=== PATIENT | male | born 1965 | race Caucasian/White ===

== ENCOUNTER 2020-01-16 18:19 | Inpatient (IN) | payer BC, OTHER ==
[~2020-01-16] VITALS: Ht 177.8 cm; Wt 110.0 kg
[2020-01-16] MEDS ORDERED: diltiazem-D5W 125mg/125ml 125 ML IV PRN (19:10)
[2020-01-16] MEDS ORDERED: diltiazem-NS 100mg/100ml 100 ML IV PRN (19:12)
[2020-01-16] MEDS ORDERED: NO HOME MEDS (19:49)
[2020-01-16] MEDS ORDERED: iohexol 350MG/ML 100ml bottle IV ONE (19:49)
[2020-01-16] MEDS ORDERED: heparin 10,000 units/1 ML INJ IV ONE (20:50)
[2020-01-16] MEDS ORDERED: ipratropium/albuterol 3ml nebule NEB PRN (20:50)
[2020-01-16] MEDS ORDERED: magnesium hydroxide 30ml (MOM) UD suspension PO PRN (20:50)
[2020-01-16] MEDS ORDERED: ondansetron/PF 4mg/2ml inj IV PRN (20:50)
[2020-01-16] MEDS ORDERED: mag hydrox/Alum hydrox/simeth 30ml oral suspension PO PRN (20:50)
[2020-01-16] MEDS ORDERED: magnesium 4gm in 100ml NS 100 ML IV PRN (20:50)
[2020-01-16] MEDS ORDERED: diltiazem-NS 100mg/100ml 100 ML IV SCH (20:50)
[2020-01-16] MEDS ORDERED: acetaminophen 325mg tablet PO PRN (20:50)
[2020-01-16] MEDS ORDERED: potassium CL 10mEq/100ml bag 100 ML IV PRN ×2 (20:50)
[2020-01-16] MEDS ORDERED: potassium Cl 20 mEq SR tablet PO PRN ×2 (20:50)
[2020-01-16] MEDS ORDERED: magnesium 2GM in 50ml NS 50 ML IV PRN (20:50)
[2020-01-16] MEDS ORDERED: temazepam 15mg capsule PO PRN (21:00)
[2020-01-16 21:11] LABS: PARTIAL THROMBOPLASTIN TIME 28 SECONDS (22-32)
[2020-01-16] MEDS: normal saline 1000ml 1,000 ML IV SCH (21:36)
[2020-01-16] MEDS: heparin 25,000 UNIT/250ml bag 250 ML IV SCH (21:49)
[2020-01-16 22:15] VITALS: BP 119/75
[2020-01-16 22:30] VITALS: BP 144/108
[2020-01-16 22:45] VITALS: BP 140/88
[2020-01-16 23:00] VITALS: BP 119/75
[2020-01-16 23:15] VITALS: BP 97/53
[2020-01-17] VITALS (13 sets, daily range): BP systolic 90–132; BP diastolic 63–99
[2020-01-17 01:26] LABS: ALANINE AMINOTRANSFERASE 36 U/L (12-78); ALBUMIN 3.2 G/DL (3.4-5.0); ALBUMIN/GLOBULIN RATIO 0.9 (1.1-1.5); ALKALINE PHOSPHATASE 96 IU/L (46-116); ANION GAP 6 (8-16); ASPARTATE AMINO TRANSFERASE 21 U/L (10-37); BILIRUBIN,TOTAL 0.6 MG/DL (0.1-1.0); BLOOD UREA NITROGEN 23 MG/DL (7-18); BUN/CREATININE RATIO 20.2 (5.4-32.0); CALCIUM 8.9 MG/DL (8.5-10.1); CHLORIDE 106 MMOL/L (99-107); CREATININE 1.14 MG/DL (0.60-1.10); GLUCOSE 125 MG/DL (70-104); POTASSIUM 3.8 MMOL/L (3.5-5.1); SODIUM 140 MMOL/L (135-145); TOTAL CARBON DIOXIDE 27.8 MMOL/L (24-32); TOTAL PROTEIN 6.6 G/DL (6.4-8.2); eGFR 67 ML/MIN
[2020-01-17 01:30] LABS: BASOPHILS # (AUTO) 0.1 X10'3 (0-0.2); BASOPHILS % (AUTO) 0.7 % (0-1); EOSINOPHILS # (AUTO) 0.2 X10'3 (0-0.9); HEMATOCRIT 40.1 % (42.0-52.0); HEMOGLOBIN 13.4 g/dl (14.0-17.9); LYMPHOCYTES # (AUTO) 2.6 X10'3 (1.1-4.8); MEAN CORPUSCULAR HEMOGLOBIN 28.8 PG (27.0-31.0); MEAN CORPUSCULAR HGB CONC 33.4 g/dL (33.0-36.5); MEAN CORPUSCULAR VOLUME 86.4 FL (78-98); MEAN PLATELET VOLUME 8.2 FL (7.4-10.4); MONOCYTES # (AUTO) 0.5 X10'3 (0-0.9); MONOCYTES % (AUTO) 5.2 % (2-12); NEUTROPHILS # (AUTO) 5.9 X10'3 (1.8-7.7); NEUTROPHILS % (AUTO) 64.1 % (42-75); PLATELET COUNT 199 X10'3 (140-440); RED BLOOD COUNT 4.64 X10'6 (4.70-6.10); WHITE BLOOD COUNT 9.2 X10'3 (4.5-11.0)
[2020-01-17] MEDS: heparin 10,000 units/1 ML INJ IV PRN ×3 (02:18→22:46)
--- NOTE | 2020-01-17 06:17 | NUR ---
Problems reprioritized. Patient report given, questions answered & plan of care reviewed with Noelle CHASE.
--- NOTE | 2020-01-17 06:39 | NUR ---
Patient in room U 3024. I have received report from Desiree CHASE and had the opportunity to ask questions and assume patient care. Addendum: 01/17/20 at 0640 by Jeannette Tejeda RN From Gro[place] CHASE
--- NOTE | 2020-01-17 07:12 | NUR ---
PAGER ID: [phone] MESSAGE: [id number] Merino Jeronimo. new admit last night on Cardizem drip. Drip reached stop time wanted to confirm to continue for his heart rate. Rate in low 100s. Jeannette CHASE [id number]
[2020-01-17] MEDS: nicotine 21mg patch - 24 hr TD SCH (07:46)
[2020-01-17] MEDS: K and/or MAG REPLACEMENT MC SCH ×2 (08:00→20:00)
[2020-01-17] MEDS: diltiazem-NS 100mg/100ml 100 ML IV SCH (08:37)
[2020-01-17] MEDS: normal saline 1000ml 1,000 ML IV SCH ×2 (08:39→17:08)
[2020-01-17] MEDS: heparin 25,000 UNIT/250ml bag 250 ML IV SCH ×2 (09:04→17:11)
--- NOTE | 2020-01-17 18:31 | NUR ---
Problems reprioritized. Patient report given, questions answered & plan of care reviewed with Jodi CHASE.
--- NOTE | 2020-01-17 18:35 | NUR ---
New hire documentation: I have reviewed and agree with all interventions, assessments performed and documented by Jeannette CHASE.
[2020-01-18] VITALS (9 sets, daily range): BP systolic 115–143; BP diastolic 76–94
[2020-01-18] MEDS: normal saline 1000ml 1,000 ML IV SCH ×3 (02:49→23:02)
[2020-01-18] MEDS: diltiazem-NS 100mg/100ml 100 ML IV SCH (04:16)
[2020-01-18 06:12] LABS: BASOPHILS % (AUTO) 0.4 % (0-1); EOSINOPHILS # (AUTO) 0.2 X10'3 (0-0.9); EOSINOPHILS % (AUTO) 2.2 % (0-6); HEMATOCRIT 40.4 % (42.0-52.0); HEMOGLOBIN 13.6 g/dl (14.0-17.9); LYMPHOCYTES # (AUTO) 2.3 X10'3 (1.1-4.8); LYMPHOCYTES % (AUTO) 26.1 % (21-51); MEAN CORPUSCULAR HGB CONC 33.6 g/dL (33.0-36.5); MEAN CORPUSCULAR VOLUME 86.2 FL (78-98); MEAN PLATELET VOLUME 7.9 FL (7.4-10.4); MONOCYTES # (AUTO) 0.6 X10'3 (0-0.9); MONOCYTES % (AUTO) 6.7 % (2-12); NEUTROPHILS # (AUTO) 5.8 X10'3 (1.8-7.7); NEUTROPHILS % (AUTO) 64.6 % (42-75); PLATELET COUNT 182 X10'3 (140-440); RED BLOOD COUNT 4.69 X10'6 (4.70-6.10); RED CELL DISTRIBUTION WIDTH 14.7 % (11.5-14.5); WHITE BLOOD COUNT 8.9 X10'3 (4.5-11.0)
[2020-01-18] MEDS: heparin 25,000 UNIT/250ml bag 250 ML IV SCH ×3 (06:26→13:09)
[2020-01-18 06:38] LABS: ALANINE AMINOTRANSFERASE 32 U/L (12-78); ALBUMIN/GLOBULIN RATIO 0.9 (1.1-1.5); ALKALINE PHOSPHATASE 83 IU/L (46-116); ANION GAP 9 (8-16); ASPARTATE AMINO TRANSFERASE 18 U/L (10-37); BILIRUBIN,TOTAL 0.4 MG/DL (0.1-1.0); BLOOD UREA NITROGEN 14 MG/DL (7-18); BUN/CREATININE RATIO 15.9 (5.4-32.0); CALCIUM 8.9 MG/DL (8.5-10.1); CHLORIDE 106 MMOL/L (99-107); CREATININE 0.88 MG/DL (0.60-1.10); GLUCOSE 108 MG/DL (70-104); MAGNESIUM 1.9 MG/DL (1.5-2.4); POTASSIUM 4.2 MMOL/L (3.5-5.1); SODIUM 140 MMOL/L (135-145); TOTAL CARBON DIOXIDE 25.1 MMOL/L (24-32); TOTAL PROTEIN 6.5 G/DL (6.4-8.2); eGFR > 90 ML/MIN
--- NOTE | 2020-01-18 07:03 | NUR ---
Patient in room PCU 3024. I have received report from Jodi CHASE and had the opportunity to ask questions and assume patient care.
[2020-01-18] MEDS: nicotine 21mg patch - 24 hr TD SCH (07:45)
[2020-01-18] MEDS: K and/or MAG REPLACEMENT MC SCH ×2 (08:00→18:56)
--- NOTE | 2020-01-18 10:53 | NUR ---
promotional table spacer promotional table spacer PAGER ID: [phone] MESSAGE: [id number] Hayder Jeronimo. Pt requesting to see you at bedside when you have a moment.
[2020-01-18] MEDS: diltiazem 30mg tablet PO SCH ×2 (13:06→21:10)
[2020-01-18] MEDS: heparin 10,000 units/1 ML INJ IV PRN (13:08)
--- NOTE | 2020-01-18 16:48 | NUR ---
Dr. Parikh called and gave orders to d/c heparin drip and decrease cardizem to maintain heart rate under 100. Drip currently at 5mg and will place new order to be decreased to 3.
[2020-01-18] MEDS ORDERED: diltiazem-NS 100mg/100ml 100 ML IV SCH (16:49)
[2020-01-18] MEDS: aspirin 325mg tablet PO SCH (17:01)
--- NOTE | 2020-01-18 18:12 | NUR ---
Problems reprioritized. Patient report given, questions answered & plan of care reviewed with Naty CHASE.
[2020-01-19] VITALS (7 sets, daily range): BP systolic 99–133; BP diastolic 71–99
--- NOTE | 2020-01-19 00:32 | NUR ---
hr sustaining under 100, cardizem gtt changed to 1mg per orders
[2020-01-19 05:32] LABS: BASOPHILS % (AUTO) 0.3 % (0-1); EOSINOPHILS # (AUTO) 0.2 X10'3 (0-0.9); EOSINOPHILS % (AUTO) 2.1 % (0-6); HEMOGLOBIN 13.6 g/dl (14.0-17.9); LYMPHOCYTES # (AUTO) 1.7 X10'3 (1.1-4.8); LYMPHOCYTES % (AUTO) 21.5 % (21-51); MEAN CORPUSCULAR HEMOGLOBIN 28.5 PG (27.0-31.0); MEAN CORPUSCULAR HGB CONC 33.3 g/dL (33.0-36.5); MEAN CORPUSCULAR VOLUME 85.6 FL (78-98); MEAN PLATELET VOLUME 7.6 FL (7.4-10.4); MONOCYTES # (AUTO) 0.5 X10'3 (0-0.9); MONOCYTES % (AUTO) 6.7 % (2-12); NEUTROPHILS # (AUTO) 5.6 X10'3 (1.8-7.7); NEUTROPHILS % (AUTO) 69.4 % (42-75); PLATELET COUNT 190 X10'3 (140-440); RED BLOOD COUNT 4.79 X10'6 (4.70-6.10); RED CELL DISTRIBUTION WIDTH 14.8 % (11.5-14.5); WHITE BLOOD COUNT 8.1 X10'3 (4.5-11.0)
--- NOTE | 2020-01-19 06:16 | NUR ---
Problems reprioritized. Patient report given, questions answered & plan of care reviewed with Carley RNs.
[2020-01-19 06:18] LABS: ALANINE AMINOTRANSFERASE 31 U/L (12-78); ALBUMIN 3.1 G/DL (3.4-5.0); ALBUMIN/GLOBULIN RATIO 0.9 (1.1-1.5); ALKALINE PHOSPHATASE 83 IU/L (46-116); ANION GAP 10 (8-16); ASPARTATE AMINO TRANSFERASE 15 U/L (10-37); BILIRUBIN,TOTAL 0.3 MG/DL (0.1-1.0); BLOOD UREA NITROGEN 14 MG/DL (7-18); BUN/CREATININE RATIO 16.1 (5.4-32.0); CALCIUM 8.9 MG/DL (8.5-10.1); CHLORIDE 107 MMOL/L (99-107); CREATININE 0.87 MG/DL (0.60-1.10); GLUCOSE 103 MG/DL (70-104); MAGNESIUM 1.9 MG/DL (1.5-2.4); POTASSIUM 4.2 MMOL/L (3.5-5.1); SODIUM 140 MMOL/L (135-145); TOTAL CARBON DIOXIDE 23.4 MMOL/L (24-32); TOTAL PROTEIN 6.6 G/DL (6.4-8.2); eGFR > 90 ML/MIN
--- NOTE | 2020-01-19 06:40 | NUR ---
Patient in room PCU 3024. I have received report from Naty CHASE and had the opportunity to ask questions and assume patient care. Patient sleeping with Cardizen running per protocol. Will continue to monitor.
[2020-01-19] MEDS: diltiazem 30mg tablet PO SCH ×2 (08:00→13:10)
--- NOTE | 2020-01-19 08:04 | NUR ---
Dr. Parikh at bedside, new order to stop cardizem gtt and give Cardizem 240mg PO x1.
[2020-01-19] MEDS ORDERED: diltiazem CD 120mg capsule (once-daily) PO ONE (08:05)
[2020-01-19] MEDS: K and/or MAG REPLACEMENT MC SCH (08:09)
[2020-01-19] MEDS: nicotine 21mg patch - 24 hr TD SCH (08:14)
[2020-01-19] MEDS: aspirin 325mg tablet PO SCH (08:14)
[2020-01-19] MEDS: normal saline 1000ml 1,000 ML IV SCH (09:56)
--- NOTE | 2020-01-19 10:49 | NUR ---
Page to Dr Parikh PAGER ID: [phone] MESSAGE: Re: Hayder Jeronimo 3024 - A. Followup - Patient's HR is holding around 100-110s at rest. Thanks! Odette [phone] Addendum: 01/19/20 at 1052 by Odette Luke RN Phone orders received for 12 lead EKG stat per Dr. Parikh.
[2020-01-19] MEDS ORDERED: ASPI-1 PO (10:52)
[2020-01-19] MEDS ORDERED: DILT300C53 PO (11:17)
--- NOTE | 2020-01-19 15:47 | NUR ---
Patient is stable for discharge per MD order. All discharge instructions reviewed with patient and all questions answered. New prescriptions called into [facility] on [facility]. Three PIVs dincontinued, cannulas intact. Telemetry monitoring discontinued, singing telegram performer notified. Belongings collected and sent with patient. Patient walked to lobby by myself, and patient picked up by in private vehicle.
--- NOTE | 2020-01-19 17:03 | NUR ---
Orientee documentation: I have reviewed and agree with all interventions, assessments performed and documented by SALVATORE Pino .
== END 2020-01-19 15:20 | disposition home or self-care (01) | DRG 310 ==
LOC: ER 18:20 → EDBD 18:20 → ED HOLD 20:49 → PCU 3S 22:07
PROVIDERS: ADMIT Family Medicine; ATTEND Internal Medicine
PROC: B32T1ZZ Computerized Tomography (CT Scan) of Left Pulmonary Artery using Low Osmolar Contrast (ICD-10-PCS; principal; 2020-01-16)
PROC: B3201ZZ Computerized Tomography (CT Scan) of Thoracic Aorta using Low Osmolar Contrast (ICD-10-PCS; 2020-01-16)
PROC: B32S1ZZ Computerized Tomography (CT Scan) of Right Pulmonary Artery using Low Osmolar Contrast (ICD-10-PCS; 2020-01-16)
DX: I48.91 Unspecified atrial fibrillation (principal); F17.210 Nicotine dependence, cigarettes, uncomplicated; Z82.49 Family history of ischemic heart disease and other diseases of the circulatory system; Z71.6 Tobacco abuse counseling
CPT/HCPCS: 36415; 71270; 80053; 83735; 84484; 85025; 85610; 85730; 87081; 93005; 93306; 94760; 96374; 97110; 97116; 97161; 97530; 99285; G0378; J1644; J3490; J7030; Q9967